=== PATIENT | male | born 1960 | race Caucasian/White ===

== ENCOUNTER → 2016-09-13 | Outpatient (CLI) | payer BC ==
--- NOTE | 2016-09-13 13:31 | DIAGNOSTIC IMAGING REPORT ---
MRI OF THE CERVICAL SPINE WITHOUT CONTRAST CLINICAL HISTORY: Cervical radiculopathy. Neck pain extending into right upper extremity. COMPARISON: None. TECHNIQUE: Utilizing a 1.5 Gely magnet and dedicated coil, multiplanar, multiecho imaging of the cervical spine was performed without IV contrast. FINDINGS: Alignment of the cervical spine is anatomic. Vertebral body heights are maintained. There is no suspicious marrow replacement. No intracanalicular mass or fluid collection is present. Visualized portions of the posterior fossa are unremarkable. Paravertebral soft tissues are unremarkable. C2-C3: The central canal and neural foramen are patent. C3-C4: There is disc bulge which results in mild narrowing of the central canal. Severe left and moderate right neural foraminal stenosis is present and due to facet arthrosis and uncovertebral hypertrophy. C4-C5: There is mild disc bulge with a small left paracentral disc protrusion. There is mild narrowing of the central canal. There is severe left and moderate right neural foraminal stenosis. C5-C6: There is disc bulge results in mild narrowing of the central canal. There is moderate bilateral neural foraminal stenosis. C6-C7: There is a moderate-sized right paracentral/right foraminal disc protrusion that measures 1.2 x 0.7 cm. There is moderate to marked narrowing of the right aspect of the canal as well as narrowing of the proximal aspect of the right neural foramen at this level. C7-T1: The central canal and neural foramen are patent. IMPRESSION: 1. Moderate-sized right paracentral/right foraminal disc protrusion at C6-C7 that results in marked narrowing of the right aspect of the canal and right neural foramen. This may account for the patient's symptoms and could be correlated with right C7 radiculopathy. Otherwise, mild multilevel narrowing of the central canal. 2. Moderate to severe multilevel neural foraminal stenosis, as detailed above. 3. Minimal cervical cord signal and caliber. Electronically signed by: Jamari Keen M.D. 09/13/2016 1:30 PM Dictated Date/Time: 09/13/2016 1:23 PM
== END | disposition home or self-care (01) ==
LOC: C.MRIBC 12:31
PROVIDERS: ATTEND Orthopaedic Surgery Orthopaedic Surgery of the Spine
DX: M54.12 Radiculopathy, cervical region (principal)

== ENCOUNTER → 2017-07-09 | Outpatient (CLI) | payer OTHER ==
[2017-07-09 12:58] LABS: BASO % 0.3 %; BASO ABS # 0.03 K/uL (0-0.2); EOS % 3.7 %; EOS ABS # 0.33 K/uL (0-0.5); HEMATOCRIT 44.9 % (42-52); HEMOGLOBIN 15.4 g/dL (14.0-18.0); IG# 0.05 K/uL (0.00-0.02); LYMPH % 31.3 %; MEAN CELL VOLUME 86.7 fL (80-100); MEAN CORPUSCULAR HEMOGLOBIN 29.7 pg (25-34); MEAN CORPUSCULAR HGB CONC 34.3 g/dl (32-36); MEAN PLATELET VOLUME 9.9 fL (7.4-10.4); MONO % 5.9 %; MONO ABS # 0.53 K/uL (0.11-0.59); NEUT % 58.2 %; NEUT ABS # 5.22 K/uL (1.4-6.5); PLATELET COUNT 269 K/uL (130-400); RED CELL DISTRIBUTION WIDTH CV 12.9 % (11.5-14.5); RED CELL DISTRIBUTION WIDTH SD 41.3 fL (36.4-46.3); WHITE BLOOD COUNT 8.96 K/uL (4.8-10.8)
[2017-07-09 13:58] LABS: ALBUMIN 3.5 gm/dl (3.4-5.0); ALT/SGPT 29 U/L (12-78); AST/SGOT 13 U/L (15-37); BLOOD UREA NITROGEN 12 mg/dl (7-18); CALCIUM 9.2 mg/dl (8.5-10.1); CARBON DIOXIDE 29 mmol/L (21-32); CHOLESTEROL 140 mg/dl (0-200); CREATININE 1.06 mg/dl (0.60-1.40); GLUCOSE 105 mg/dl (70-99); POTASSIUM 3.6 mmol/L (3.5-5.1); SODIUM 135 mmol/L (136-145); TOTAL PROTEIN 7.5 gm/dl (6.4-8.2)
[2017-07-09 13:59] LABS: ALKALINE PHOSPHATASE 70 U/L (45-117); LDL CHOLESTEROL CALCULATED 70 mg/dl
== END | disposition home or self-care (01) ==
LOC: C.LABMFLN 07:00
PROVIDERS: ATTEND Family Medicine
DX: I10 Essential (primary) hypertension (principal); K21.9 Gastro-esophageal reflux disease without esophagitis

== ENCOUNTER → 2017-11-07 | Outpatient (CLI) | payer OTHER ==
[2017-11-07 13:38] LABS: BLOOD UREA NITROGEN 14 mg/dl (7-18); CALCIUM 8.4 mg/dl (8.5-10.1); CARBON DIOXIDE 24 mmol/L (21-32); CREATININE 1.04 mg/dl (0.60-1.40); GLUCOSE 116 mg/dl (70-99); POTASSIUM 3.8 mmol/L (3.5-5.1); SODIUM 135 mmol/L (136-145)
== END | disposition home or self-care (01) ==
LOC: C.LABMFLN 07:52
PROVIDERS: ATTEND Family Medicine
DX: I10 Essential (primary) hypertension (principal)